=== PATIENT | female | born 1985 | race Hispanic/Latino ===

== ENCOUNTER 2018-12-26 02:46 | Observation (INO) | payer OTHER, SELFPAY ==
[2018-12-26] MEDS ORDERED: MORPHINE 4 MG/ML SYR ONE (03:24)
[2018-12-26] MEDS ORDERED: FAMOTIDINE 20 MG/2 ML VIAL IV ONE (03:24)
[2018-12-26] MEDS ORDERED: ONDANSETRON 4 MG/2 ML VIAL ONE ×2 (03:24→11:48)
[2018-12-26] MEDS ORDERED: NA CHLORIDE 0.9% 1,000 ML ONE (03:25)
--- NOTE | 2018-12-26 03:31 | ER ---
Nurse's Notes [facility] Name: Taarh Izquierdo Age: 33 yrs Sex: Female : 1985 Arrival Date: 12/26/2018 Time: 02:50 Bed 19 Private MD: Diagnosis: Abdominal tenderness;Cholelithiasis;Cholecystitis Presentation: 12/26 02:55 Presenting complaint: Patient states: I started having abdominal pain last night and I ed1 have been throwing up. Transition of care: patient was not received from another setting of care. Onset of symptoms was December 25, 2018. Risk Assessment: Do you want to hurt yourself or someone else? Patient reports no desire to harm self or others. Initial Sepsis Screen: Does the patient meet any 2 criteria? No. Patient's initial sepsis screen is negative. Does the patient have a suspected source of infection? No. Patient's initial sepsis screen is negative. Care prior to arrival: None. 02:55 Method Of Arrival: Ambulatory ed1 02:55 Acuity: NATALIYA 3 ed1 Triage Assessment: 02:56 General: Appears uncomfortable, Behavior is crying. Pain: Complains of pain in ed1 epigastric area Pain currently is 10 out of 10 on a pain scale. GI: Reports nausea, vomiting. 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 - Social history:: Smoking status: Patient/guardian denies using tobacco. - Ebola Screening: : Patient negative for fever greater than or equal to 101.5 degrees Fahrenheit, and additional compatible Ebola Virus Disease symptoms Patient denies exposure to infectious person Patient denies travel to an Ebola-affected area in the 21 days before illness onset No symptoms or risks identified at this time. - Family history:: not pertinent. Screenin:52 Abuse screen: Denies threats or abuse. Denies injuries from another. Nutritional cc3 screening: No deficits noted. Tuberculosis screening: No symptoms or risk factors identified. Fall Risk Ambulatory Aid- None/Bed Rest/Nurse Assist (0 pts). Gait- Normal/Bed Rest/Wheelchair (0 pts) Mental Status- Oriented to own ability (0 pts). Assessment: 02:52 GI: Bowel sounds present X 4 quads. Abd is soft and non tender X 4 quads. cc3 03:17 Reassessment: Patient appears in no apparent distress at this time. Patient and/or cc3 family updated on plan of care and expected duration. Pain level reassessed. Patient is alert, oriented x 3, equal unlabored respirations, skin warm/dry/pink. 03:45 Reassessment: Patient just finished her oral contrast, radiocommunications technician Yvette informed. cc3 04:30 Reassessment: Patient appears in no apparent distress at this time. Patient and/or cc3 family updated on plan of care and expected duration. Pain level reassessed. Patient is alert, oriented x 3, equal unlabored respirations, skin warm/dry/pink. 05:24 Reassessment: Patient appears in no apparent distress at this time. Patient and/or cc3 family updated on plan of care and expected duration. Pain level reassessed. Patient is alert, oriented x 3, equal unlabored respirations, skin warm/dry/pink. Patient came back from CT scan department, awaiting result. 05:45 Reassessment: Patient taken to ultrasound department by the traffic survey technician. cc3 06:00 Reassessment: Patient appears in no apparent distress at this time. Patient and/or cc3 family updated on plan of care and expected duration. Pain level reassessed. Patient is alert, oriented x 3, equal unlabored respirations, skin warm/dry/pink. Patient came back from ultrasound department, awaiting result. Charge nurse Radha said to send the patient for admission once with CT scan result. 06:20 Reassessment: Patient appears in no apparent distress at this time. Patient and/or cc3 family updated on plan of care and expected duration. Pain level reassessed. Patient is alert, oriented x 3, equal unlabored respirations, skin warm/dry/pink. Called radiocommunications technician Yvette to follow up CT scan result and she said no official result yet. 07:32 Reassessment: Patient appears in no apparent distress at this time. Patient and/or sg family updated on plan of care and expected duration. Pain level reassessed. Patient is alert, oriented x 3, equal unlabored respirations, skin warm/dry/pink. pt and pt family updated, awaiting radiology results prior to admission to room 203 per ER doctor order, stated understanding, will continue to monitor. Vital Signs: 02:56 Pulse 102; Resp 20; Temp 98(O); Pulse Ox 100% ; Weight 81.65 kg; Height 5 ft. 3 in. ed1 (160.02 cm); Pain 10/10; 02:56 BP 185 / 105; cc3 03:19 BP 172 / 107; Pulse 86; Resp 18 S; Pulse Ox 99% on R/A; cc3 03:30 BP 147 / 89; Pulse 85; Resp 18 S; Pulse Ox 99% on R/A; cc3 04:30 BP 134 / 97; Pulse 65; Resp 17 S; Pulse Ox 98% on R/A; Pain 1/10; cc3 05:30 BP 145 / 91; Pulse 69; Resp 18 S; Pulse Ox 100% on R/A; cc3 06:10 BP 143 / 88; Pulse 80; Resp 18 S; Pulse Ox 100% on R/A; cc3 07:12 BP 140 / 80; Pulse 80; Resp 17; Temp 98.0; Pulse Ox 100% on R/A; Pain 4/10; sg 02:56 Body Mass Index 31.89 (81.65 kg, 160.02 cm) ed1 ED Course: 02:50 Patient arrived in ED. es 02:52 Marilyn Peoples is Primary Nurse. cc3 02:52 Erasmo Oliva MD is Attending Physician. tony 02:52 Patient has correct armband on for positive identification. Bed in low position. Call cc3 light in reach. Side rails up X 1. Pulse ox on. NIBP on. 02:56 Triage completed. ed1 02:56 Arm band placed on. ed1 03:20 Inserted saline lock: 20 gauge in right antecubital area, using aseptic technique. cc3 Blood collected. inserted by special procedures tech Laci. 03:30 Thiago Gill MD is Hospitalizing Provider. tony 03:55 X-ray completed. Portable x-ray completed in exam room. Patient tolerated procedure az well. 07:00 Report given to JAYLAN Ariza. cc3 07:01 To Brandt RN is Primary Nurse. sg 07:33 No provider procedures requiring assistance completed. Patient admitted, IV remains in sg place. intact, No redness/swelling at site. Administered Medications: 03:20 Drug: NS 0.9% 1000 ml Route: IV; Rate: 1 bolus; Site: right antecubital; cc3 05:00 Follow up: Response: No adverse reaction; IV Status: Completed infusion; IV Intake: cc3 1000ml 03:25 Drug: morphine 4 mg Route: IVP; Site: right antecubital; cc3 04:30 Follow up: Response: No adverse reaction; Pain is decreased cc3 03:28 Drug: Zofran 4 mg Route: IVP; Site: right antecubital; cc3 04:00 Follow up: Response: No adverse reaction; Nausea is decreased cc3 03:33 Drug: Pepcid 20 mg Route: IVP; Site: right antecubital; cc3 04:30 Follow up: Response: No adverse reaction; Pain is decreased cc3 03:40 Drug: Zosyn 3.375 grams Route: IVPB; Infused Over: 60 mins; Site: right antecubital; cc3 04:45 Follow up: Response: No adverse reaction; IV Status: Completed infusion; IV Intake: cc3 100ml Intake: 04:45 IV: 100ml; Total: 100ml. cc3 05:00 IV: 1000ml; Total: 1100ml. cc3 Outcome: 03:30 Decision to Hospitalize by Provider. tony 07:47 Admitted to Med/surg accompanied by vida, via stretcher, room 203, with chart, Report sg called to Lupe TIAN 07:47 Condition: stable 07:47 Instructed on the need for admit, safety practices, Demonstrated understanding of instructions, follow-up care. 08:06 Patient left the ED. sg Signatures: To Brandt RN RN Erasmo Barkley MD MD cha Salyer, Edna es Riggs, Erika, RN RN ed1 Marilyn Peoples cc3 Monica Bowers Corrections: (The following items were deleted from the chart) 03:31 03:30 BP 172 / 107; Pulse 86bpm; Resp 18bpm; Spontaneous; Pulse Ox 99% RA; cc3 cc3 05:24 04:30 Reassessment: Patient appears in no apparent distress at this time. Patient cc3 and/or family updated on plan of care and expected duration. Pain level reassessed. Patient is alert, oriented x 3, equal unlabored respirations, skin warm/dry/pink. Ultrasound done bedside, awaiting for result. cc3 06:09 04:30 Reassessment: Patient appears in no apparent distress at this time. Patient cc3 and/or family updated on plan of care and expected duration. Pain level reassessed. Patient is alert, oriented x 3, equal unlabored respirations, skin warm/dry/pink. Ultrasound done bedside as per patient, awaiting for result. cc3 06:10 04:30 Reassessment: Patient appears in no apparent distress at this time. Patient cc3 and/or family updated on plan of care and expected duration. Pain level reassessed. Patient is alert, oriented x 3, equal unlabored respirations, skin warm/dry/pink. Ultrasound done bedside as per patient, awaiting for result. cc3
--- NOTE | 2018-12-26 03:31 | EDPHYS ---
Physician Documentation [facility] Name: Tarah Izquierdo Age: 33 yrs Sex: Female : 1985 Arrival Date: 12/26/2018 Time: 02:50 Bed 19 Private MD: GAEL Physician Erasmo Oliva HPI: 12/26 03:05 This 33 yrs old Female presents to ER via Ambulatory with complaints of tony Abdominal Pain, Vomiting. 03:05 The patient presents to the emergency department with nausea, vomiting, abdominal pain, tony of the epigastric area, right upper quadrant and left upper quadrant. Onset: The symptoms/episode began/occurred just prior to arrival, this morning. Possible causes: unknown. The symptoms are aggravated by food , The symptoms are alleviated by nothing. remaining still. Associated signs and symptoms: The patient has no apparent associated signs or symptoms. Severity of symptoms: At their worst the symptoms were mild moderate in the emergency department the symptoms are unchanged. The patient has not experienced similar symptoms in the past. 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 - Social history:: Smoking status: Patient/guardian denies using tobacco. - Ebola Screening: : Patient negative for fever greater than or equal to 101.5 degrees Fahrenheit, and additional compatible Ebola Virus Disease symptoms Patient denies exposure to infectious person Patient denies travel to an Ebola-affected area in the 21 days before illness onset No symptoms or risks identified at this time. - Family history:: not pertinent. ROS: 03:05 Constitutional: Negative for fever, chills, and weight loss, Eyes: Negative for injury, tony pain, redness, and discharge, ENT: Negative for injury, pain, and discharge, Neck: Negative for injury, pain, and swelling, Cardiovascular: Negative for chest pain, palpitations, and edema, Respiratory: Negative for shortness of breath, cough, wheezing, and pleuritic chest pain, Back: Negative for injury and pain, : Negative for injury, bleeding, discharge, and swelling, MS/Extremity: Negative for injury and deformity, Skin: Negative for injury, rash, and discoloration, Neuro: Negative for headache, weakness, numbness, tingling, and seizure, Psych: Negative for depression, anxiety, suicide ideation, homicidal ideation, and hallucinations, Allergy/Immunology: Negative for hives, rash, and allergies, Endocrine: Negative for neck swelling, polydipsia, polyuria, polyphagia, and marked weight changes, Hematologic/Lymphatic: Negative for swollen nodes, abnormal bleeding, and unusual bruising. 03:05 Abdomen/GI: Positive for abdominal pain. Exam: 03:05 Constitutional: This is a well developed, well nourished patient who is awake, alert, tony and in no acute distress. Head/Face: Normocephalic, atraumatic. Eyes: Pupils equal round and reactive to light, extra-ocular motions intact. Lids and lashes normal. Conjunctiva and sclera are non-icteric and not injected. Cornea within normal limits. Periorbital areas with no swelling, redness, or edema. ENT: Nares patent. No nasal discharge, no septal abnormalities noted. Tympanic membranes are normal and external auditory canals are clear. Oropharynx with no redness, swelling, or masses, exudates, or evidence of obstruction, uvula midline. Mucous membranes moist. Neck: Trachea midline, no thyromegaly or masses palpated, and no cervical lymphadenopathy. Supple, full range of motion without nuchal rigidity, or vertebral point tenderness. No Meningismus. Chest/axilla: Normal chest wall appearance and motion. Nontender with no deformity. No lesions are appreciated. Cardiovascular: Regular rate and rhythm with a normal S1 and S2. No gallops, murmurs, or rubs. Normal PMI, no JVD. No pulse deficits. Respiratory: Lungs have equal breath sounds bilaterally, clear to auscultation and percussion. No rales, rhonchi or wheezes noted. No increased work of breathing, no retractions or nasal flaring. Back: No spinal tenderness. No costovertebral tenderness. Full range of motion. Skin: Warm, dry with normal turgor. Normal color with no rashes, no lesions, and no evidence of cellulitis. MS/ Extremity: Pulses equal, no cyanosis. Neurovascular intact. Full, normal range of motion. Neuro: Awake and alert, GCS 15, oriented to person, place, time, and situation. Cranial nerves II-XII grossly intact. Motor strength 5/5 in all extremities. Sensory grossly intact. Cerebellar exam normal. Normal gait. Psych: Awake, alert, with orientation to person, place and time. Behavior, mood, and affect are within normal limits. 03:05 Abdomen/GI: Inspection: abdomen appears normal, Bowel sounds: normal, active, Palpation: mild abdominal tenderness, moderate abdominal tenderness, in the epigastric area, Liver: no appreciated palpable abnormalities, Hernia: not appreciated. Vital Signs: 02:56 Pulse 102; Resp 20; Temp 98(O); Pulse Ox 100% ; Weight 81.65 kg; Height 5 ft. 3 in. ed1 (160.02 cm); Pain 10/10; 02:56 BP 185 / 105; cc3 03:19 BP 172 / 107; Pulse 86; Resp 18 S; Pulse Ox 99% on R/A; cc3 03:30 BP 147 / 89; Pulse 85; Resp 18 S; Pulse Ox 99% on R/A; cc3 04:30 BP 134 / 97; Pulse 65; Resp 17 S; Pulse Ox 98% on R/A; Pain 1/10; cc3 05:30 BP 145 / 91; Pulse 69; Resp 18 S; Pulse Ox 100% on R/A; cc3 06:10 BP 143 / 88; Pulse 80; Resp 18 S; Pulse Ox 100% on R/A; cc3 07:12 BP 140 / 80; Pulse 80; Resp 17; Temp 98.0; Pulse Ox 100% on R/A; Pain 4/10; sg 02:56 Body Mass Index 31.89 (81.65 kg, 160.02 cm) ed1 MDM: 02:52 Patient medically screened. [facility] 03:08 Data reviewed: vital signs, nurses notes, lab test result(s), EKG, radiologic studies, tony ultrasound. 12/26 03:05 Order name: Basic Metabolic Panel; Complete Time: 04:37 [facility] 12/26 03:05 Order name: CBC with Diff; Complete Time: 04:37 [facility] 12/26 03:05 Order name: Creatinine for Radiology; Complete Time: 04:37 [facility] 12/26 03:05 Order name: Hepatic Function; Complete Time: 04:37 [facility] 12/26 03:05 Order name: Lipase; Complete Time: 04:37 [facility] 12/26 03:17 Order name: Urine Dipstick--Ancillary (enter results) [facility] 12/26 03:17 Order name: CT Abd/Pelvis - W/Contrast [facility] 12/26 03:17 Order name: Urine --Ancillary (enter results) [facility] 12/26 03:29 Order name: US Abdomen Limited [facility] 12/26 03:40 Order name: Chest Single View XRAY [facility] 12/26 03:05 Order name: IV Saline Lock; Complete Time: 03:29 [facility] 12/26 03:05 Order name: Labs collected and sent; Complete Time: 03:29 [facility] 12/26 03:05 Order name: Urine Dipstick-Ancillary (obtain specimen); Complete Time: 03:07 [facility] 12/26 03:05 Order name: Urine Test (obtain specimen); Complete Time: 03:07 [facility] Administered Medications: 03:20 Drug: NS 0.9% 1000 ml Route: IV; Rate: 1 bolus; Site: right antecubital; cc3 05:00 Follow up: Response: No adverse reaction; IV Status: Completed infusion; IV Intake: cc3 1000ml 03:25 Drug: morphine 4 mg Route: IVP; Site: right antecubital; cc3 04:30 Follow up: Response: No adverse reaction; Pain is decreased cc3 03:28 Drug: Zofran 4 mg Route: IVP; Site: right antecubital; cc3 04:00 Follow up: Response: No adverse reaction; Nausea is decreased cc3 03:33 Drug: Pepcid 20 mg Route: IVP; Site: right antecubital; cc3 04:30 Follow up: Response: No adverse reaction; Pain is decreased cc3 03:40 Drug: Zosyn 3.375 grams Route: IVPB; Infused Over: 60 mins; Site: right antecubital; cc3 04:45 Follow up: Response: No adverse reaction; IV Status: Completed infusion; IV Intake: cc3 100ml Disposition: 12/26/18 03:30 Hospitalization ordered by Thiago Gill for Observation. Preliminary diagnosis are Abdominal tenderness, Cholelithiasis, Cholecystitis. - Bed requested for Telemetry/MedSurg (observation). - Status is Observation. sg - Condition is Stable. - Problem is new. - Symptoms have improved. UTI on Admission? No Signatures: Dispatcher [employer] EDJairon Willen, RN RN sg Erasmo Oliva MD MD cha Riggs, Erika, RN RN ed1 Rosa Rose, RN RN cg Marilyn Peoples cc3 Corrections: (The following items were deleted from the chart) 03:43 03:30 Hospitalization Ordered by Thiago Gill MD for Observation. Preliminary cg diagnosis is Abdominal tenderness; Cholelithiasis; Cholecystitis. Bed requested for Telemetry/MedSurg (observation). Status is Observation. Condition is Stable. Problem is new. Symptoms have improved. UTI on Admission? No. [facility] 08:06 03:43 12/26/2018 03:30 Hospitalization Ordered by Thiago Gill MD for Observation. Preliminary diagnosis is Abdominal tenderness; Cholelithiasis; Cholecystitis. Bed requested for Telemetry/MedSurg (observation). Status is Observation. Condition is Stable. Problem is new. Symptoms have improved. UTI on Admission? No.
[2018-12-26 03:44] LABS: Absolute Lymphocytes (CBC) 1.8 K/uL (0.7-4.9); Absolute Monocytes 0.4 K/uL (0.1-1.3); Absolute Neutrophil 5.3 K/uL (1.8-8.0); Eosinophils % 0.3 % (0-4.4); Hematocrit 42.3 % (36.0-45.0); Lymphocytes % 23.9 % (15.3-44.8); MPV 8.5 fL (7.6-11.3); Monocytes % 5.6 % (3.3-12.3); RBC Red Blood Cell Count 4.93 M/uL (3.86-4.86)
[2018-12-26] MEDS ORDERED: PIPER/TAZO/NS 3.375gm 3.375 GM/100 ML BAG ONE (03:50)
[2018-12-26 03:57] LABS: Albumin 4.4 g/dL (3.4-5.0); Bilirubin Direct 0.1 mg/dL (0-0.2); Bilirubin Total 0.4 mg/dL (0.2-1.0); Potassium 3.5 mmol/L (3.5-5.1)
[2018-12-26 07:17] LABS: Urine Blood NEGATIVE (NEG); Urine Glucose TRACE (NEG); Urine Protein NEGATIVE (NEG); Urine pH 7.5 (5.0-7.0)
[2018-12-26] MEDS: D5 0.45 NS 1,000 ML IV SCH ×2 (08:33→16:33)
[2018-12-26] MEDS ORDERED: ONDANSETRON 4 MG/2 ML VIAL IV PRN (08:33)
[2018-12-26] MEDS ORDERED: ACETAMINOPHEN 325 MG TABLET PO PRN (08:33)
[2018-12-26] MEDS ORDERED: MORPHINE 4 MG/ML SYR IV PRN (08:33)
[2018-12-26] MEDS ORDERED: FAMOTIDINE 20 MG/2 ML VIAL IV SCH ×3 (09:00→21:00)
--- NOTE | 2018-12-26 09:09 | RAD REPORT ---
EXAM DESCRIPTION: US - Abdomen Exam Limited - 12/26/2018 6:05 am CLINICAL HISTORY: Abdominal pain. COMPARISON: December 26, 2018 cat scan FINDINGS: Multiple gallstones. The gallbladder wall is not thickened. The biliary tree is normal caliber. IMPRESSION: Cholelithiasis
--- NOTE | 2018-12-26 10:06 | RAD REPORT ---
EXAM DESCRIPTION: Neymar Single View12/26/2018 3:56 am CLINICAL HISTORY: Abdominal pain COMPARISON: none FINDINGS: The lungs appear clear of acute infiltrate. The heart is normal size IMPRESSION: No acute abnormalities displayed
[2018-12-26] MEDS ORDERED: Ringers Lactate 1,000 ML IV ONE (10:18)
[2018-12-26] MEDS ORDERED: PROPOFOL 200 MG/20 ML VIAL IV ONE (11:25)
[2018-12-26] MEDS ORDERED: FENTANYL CITR 100 MCG/2 ML ONE ×2 (11:25→12:03)
[2018-12-26] MEDS ORDERED: LIDOCAINE 2% MPF 5 ML VIAL ONE (11:26)
[2018-12-26] MEDS ORDERED: ROCURONIUM 50 MG/5 ML VIAL IV ONE (11:26)
[2018-12-26] MEDS ORDERED: DEXAMETHASONE 10 MG/ML VIAL ONE (11:48)
[2018-12-26] MEDS ORDERED: KETOROLAC 30 MG/ML INJ ONE (11:48)
[2018-12-26] MEDS ORDERED: PIPER/TAZO/NS 3.375gm 3.375 GM/100 ML BAG IVPB SCH (12:00)
[2018-12-26] MEDS ORDERED: GLYCOPYRROLATE 0.2 MG/ML SYR ONE (12:14)
--- NOTE | 2018-12-26 12:42 | P.BOP ---
Preoperative diagnosis: acute cholecystitist, symptomatic cholelithiasis Postoperative diagnosis: same, umbilical hernia Primary procedure: Laparoscopic cholecystectomy Secondary procedure: open repair of tender umbilical hernia Estimated blood loss: <10cc Specimen: GB, sac Findings: see dictation Anesthesia: General Complications: None Transferred to: Recovery Room Condition: Good
[2018-12-26] MEDS ORDERED: HYDROCODONE/APAP 5/325 MG TAB PO PRN (13:01)
--- NOTE | 2018-12-26 18:12 | OP ---
Date of Procedure: 12/26/2018 Surgeon: Thiago Gill MD Battery Checker: None. Preoperative Diagnoses: Acute cholecystitis, symptomatic cholelithiasis. Postoperative Diagnoses: Acute cholecystitis, symptomatic cholelithiasis, plus tender umbilical elizabeth ia. Procedures: Laparoscopic cholecystectomy. Open repair of tender umbilical hernia. Estimated Blood Loss: Less than 10 cc. Specimen: Gallbladder and hernia sac. Findings: The patient has acute cholecystitis with distended gallbladder, large stones, thickening o f the wall of the gallbladder. Also the patient has umbilical hernia with incarcerated omentum. Indications: This is the case of a 33-year-old patient, who comes to us with intractable right upper quadrant pain. The benefits, alternatives, and risks of laparoscopic, possible open cholecystectomy fully explained, which include but are not limited to infection, bleeding, damage to adjacent struct ures, anesthesia complication, choledocholithiasis, bile leak, pancreatitis, NM, and even . She also understands this may not relieve any symptoms. She might need more than one surgical intervent ion. She understood, signed a consent. Description Of Procedure: The patient was brought to the operating room, placed in supine position. Anesthesia was done without complication. Abdominal area was prepped and draped in usual sterile fa shion. Local anesthesia was applied, followed by sharp incision of the skin. Immediately, we notice d the patient to have an umbilical hernia with incarcerated omentum. So carefully, the hernia sac wa s opened. Omentum was reduced back into the abdominal cavity after being fully inspected and noticed to be viable, and some adhesions removed from omentum to the hernia sac. The fascial edges were ope sumi, and then after that I placed Vicryl #1 inside the fascia. Ana trocar was carefully introduce d. Pneumoperitoneum was obtained. I placed 3 more trocars, 5 mm each one of them, in the right uppe r quadrant under direct visualization. Since the gallbladder was distended, I had to put an Endo nee dle and deflate the gallbladder partially with the Endo needle under direct visualization. The needl e was removed. Then, after that, I put a grasper in the fundus of the gallbladder, another grasper i n the infundibulum, retracted the gallbladder in the inferolateral fashion exposing the triangle of C alot, obtaining critical view of safety. The cystic duct and cystic artery were clearly isolated kelsey e circumferentially and a connection between those and the gallbladder was clearly identified. I pro ceeded to ligate those by using at least 3 clips proximal, 1 clip distal, ligation in middle. Same w as done with the cystic artery. No bile leak. No bleeding. The gallbladder was removed from liver using Bovie cauterizer and removed from abdominal cavity using an EndoCatch through the umbilical inc ision. The area was inspected once again. No bile leak. No bleeding after irrigation and suction. Once again, clips were intact. At that moment, I proceeded to remove the trocars under direct visio n. Deflated the pneumoperitoneum. Closed the fascia and the umbilical hernia with #1 Vicryl in a fi gure-eight fashion, interrupted, multiple. Irrigation was done and subcu tissue was closed with 3-0 chromic and skin in subcuticular fashion with 3-0 chromic and Steri-Strips on top. Sponge count and instrument counts were correct. The patient tolerated the procedure well. The patient was sent to [facility] in stable condition. If she can tolerate diet this afternoon and dinner, then she will be discharged home. Follow up in m y office next Friday. Medications include Augmentin 875 p.o. q.12, hydrocodone q.4 hours p.r.n. pain . No heavy lifting, no more than 20 pounds. Keep the area dry for 48 hours, then may shower. Keep Steri-Strips intact. AUDREY/EZIO Voice ID: [id number] Report ID: [id number]
--- NOTE | 2018-12-26 18:27 | HP ---
Date of Admission: 12/26/2018 Diagnoses: Acute cholecystitis, symptomatic cholelithiasis, right upper quadrant abdominal pain. History Of Present Illness: This is the case of a 33-year-old patient who comes to us with epigastri c right upper quadrant pain radiating to the back associated with nausea and vomiting. This has been like that since about a day already. In the ER, even with hydration the pain persisted, so they francisco javier led me for admission and treating of cholecystitis with cholecystectomy. She denies any dysuria, hem aturia, hematochezia, or melena. Denies any recent traveling out of the country. Denies any family member sick at home. Allergies: NONE. Surgeries: None. Medical History: None. Family History: Noncontributory. Gynecologic History: Last menstrual period, irregular menses. Social History: She does not smoke. She does not drink alcohol. Review of Systems: Ten points, otherwise unremarkable. Physical Examination: General: The patient is awake and alert. HEENT: Pupils are equal and reactive, anicteric. Neck: Supple. Chest: Clear. Abdomen: Epigastric right upper quadrant tenderness with Wong sign positive. The rest of abdomen soft and depressible. Extremities: Good capillary refill. Breast/Rectal/Pelvis: Deferred. Neurologic: Cranial nerves 2-12 grossly within normal limits. Laboratory Data: Blood work shows WBC count of 7.7, hemoglobin of 14.4, total bilirubin of 0.4. BUN is 11. Creatinine 0.79. Lipase 103. Laboratory Data: Ultrasound of the abdomen interpreted by Dr. Sanchez as cholelithiasis. Assessment: A 33-year-old patient with acute cholecystitis, symptomatic cholelithiasis, right upper quadrant pain. Wong sign positive. Benefits, alternatives, and risks of laparoscopic, possible op en cholecystectomy fully explained, which included but not limited to infection, bleeding, damage to adjacent structures, anesthesia complication, choledocholithiasis, bile leak, pancreatitis, SD, and e marcelino . She also understands this may not relieve any symptoms. She might need more than one elodia gical intervention. She would like to undergo the surgery during this admission. AUDREY/EZIO Voice ID: [id number]
--- NOTE | 2018-12-28 12:00 | RAD REPORT ---
EXAM DESCRIPTION: CT - Abdomen Pelvis W Contrast - 12/26/2018 6:38 am CLINICAL HISTORY: ABD PAIN COMPARISON: None. TECHNIQUE: CT ABDOMEN PELVIS WITH IV CONTRAST on 12/26/2018 3:17 AM CDT This exam was performed according to our departmental dose-optimization program, which includes autom ated exposure control, adjustment of the mA and/or kV according to patient size and/or use of iterati ve reconstruction technique. FINDINGS: Lower lungs are clear. Abdomen: The liver is normal in appearance. There is no biliary dilatation. Gallbladder contains mult iple large gallstones. The pancreas and spleen are normal in appearance. The adrenal glands and kidne ys are unremarkable. Abdominal aorta is normal in course and caliber without aneurysm. There is no free air. There is no r etroperitoneal adenopathy. Pelvis: There is no bowel obstruction. Urinary bladder is unremarkable. There is no free fluid. Appen og is normal. Uterus is normal in size. Skeleton: There are no acute osseous findings. No suspicious bony lesions. IMPRESSION: Cholelithiasis. No acute inflammatory process. Electronically signed by: Brendan Rodriguez MD 12/26/2018 5:34 AM CDT Due to temporary technical issues with the PACS/Fluency reporting system, reports are being signed by the in house radiologist as a courtesy to ensure prompt reporting. The interpreting radiologist is f ully responsible for the content of the report.
== END 2018-12-26 17:38 | disposition home or self-care (01) ==
LOC: ER 02:46 → INTOOBSV 03:34 → ERHOLD 03:34 → 2ND 07:50
PROVIDERS: ADMIT Surgery; ATTEND Surgery
PROC: 0WQF0ZZ Repair Abdominal Wall, Open Approach (ICD-10-PCS; 2018-12-26)
PROC: 0FT44ZZ Resection of Gallbladder, Percutaneous Endoscopic Approach (ICD-10-PCS; principal; 2018-12-26 11:00)
DX: K80.00 Calculus of gallbladder with acute cholecystitis without obstruction (principal); K42.0 Umbilical hernia with obstruction, without gangrene
CPT/HCPCS: 36415; 71045; 74177; 76705; 80048; 80076; 81003; 81025; 83690; 85025; 88302; 88304; 96361; 96365; 96375; 99285; G0378; J1100; J2405; J2543; J2704; J3010; J7030; Q9967

== ENCOUNTER 2022-04-16 07:06 | Emergency (ER) | payer OTHER ==
--- OUTSIDE RECORDS SUMMARY | 2022-04-16 07:09 | XMS REPORT | Continuity of Care Document ---
:1985 Author Organization [facility] t Address [address] [place] [address] Care Team Providers Name Role Phone Pcp, Patient Does Not Have A Primary Care Physician [phone] Rosanna Rose RN Attending Clinician Unavailable Roderick Ramírez Attending Clinician RODERICK SHEN Attending Clinician Unavailable Provider, [facility] Attending Clinician Unavailable Noemí Coe Attending Clinician NOEMÍ NOVA Attending Clinician Unavailable Payers Payer Name Policy Type Policy Number Effective Date Expiration Date S ource Problems Condition Condition Condition Status Onset Resolution Last Treating Co mments Source Name Details Category Date Date Treatment Clinician Date No known No known Disease Unive rs active active ity of problems problems [facility] Allergies, Adverse Reactions, Alerts Allergy Allergy Status Severity Reaction(s) Onset Inactive Treating Comm ents Source Name Type Date Date Clinician NO KNOWN Drug Active Univers ALLERGIE Class ity of S [facility] Social History Social Habit Start Date Stop Date Quantity Comments Source Exposure to 2022-02-25 2022-03-07 Not sure University SARS-CoV-2 00:00:00 13:56:00 [facility] [place] Tobacco use and 2020-12-27 2020-12-27 Smokeless tobacco Un iversity of exposure 00:00:00 00:00:00 non-user [facility] Sex Ass[birth year] At [birth year] Universit y of 00:00:00 00:00:00 [facility] Smoking Status Start Date Stop Date Source Never smoked tobacco [facility] Medications Ordered Filled Start Stop Current Ordering Indication Dosage Frequency Signature Comments Components Source Medication Medication Date Date Medication? Clinician (SIG) Name Name loperamide Yes Take by Univ ers HCl 5-05 mouth. ity of (IMODIUM 16:31: [place] ORAL) [address] loperamide Yes Take by Univ ers HCl 5-05 mouth. ity of (IMODIUM 11:31: [place] ORAL) [address] loperamide Yes Take by Univ ers HCl 5-05 mouth. ity of (IMODIUM 11:31: [place] ORAL) [address] [facility] [address] Vital Signs Vital Name Observation Time Observation Value Comments Source Systolic blood 2022-03-07 19:11:00 150 mm[Hg] manual Univer sity of pressure [facility] Diastolic blood 2022-03-07 19:11:00 110 mm[Hg] manual Unive rsity [facility] Heart rate 2022-03-07 19:00:00 106 /min [facility] Body temperature 2022-03-07 19:00:[address] [facility] Respiratory rate 2022-03-07 19:00:00 20 /min Univ [facility] Body height 2022-03-07 19:00:00 160 cm [facility] Body weight 2022-03-07 19:00:00 83.915 kg [facility] BMI 2022-03-07 19:00:00 32.77 kg/m2 [facility] Oxygen saturation in 2022-03-07 19:00:00 97 /min [facility] Arterial blood by [facility] Pulse oximetry Branch Systolic blood 2020-12-27 16:34:00 155 mm[Hg] Univer sity of pressure [facility] Diastolic blood 2020-12-27 16:34:00 107 mm[Hg] Unive rsity of [facility] Heart rate 2020-12-27 16:30:00 96 /min [facility] Respiratory rate 2020-12-27 16:30:00 16 /min [facility] Body height 2020-12-27 16:30:00 160 cm [facility] Body weight 2020-12-27 16:30:00 85.276 kg [facility] BMI 2020-12-27 16:30:00 33.30 kg/m2 [facility] Oxygen saturation in 2020-12-27 16:30:00 98 /min [facility] Arterial blood by [facility] Pulse oximetry [place] Procedures Procedure Date / Time Performed Performing Clinician Sourc e POCT MOLECULAR STREP 2022-03-07 19:09:00 Roderick [facility] POCT TEST 2020-12-27 17:40:00 Noemí [facility] POCT URINALYSIS 2020-12-27 16:39:00 Noemí Nova [facility] Encounters Start End Encounter Admission Attending Care Care Encounter Source Date/Time Date/Time Type Type Clinicians Facility Department ID 2022-03-08 2022-03-08 Telephone JACQUI Rose [id number] Univers 00:00:00 00:00:00 Rosanna ABREU [id number] i ty of [facility] [id number] Rahul as [id number] [address] 2022-03-07 2022-03-07 Outpatient R [facility] [id number] Univers 14:40:00 14:40:00 [id number] [facility] 2022-03-07 2022-03-07 Urgent Deric [facility] [id number] Univers 14:40:00 14:40:00 Care [facility] [id number] it y [facility] [id number] Rahul as KIERA?BLEA [id number] [address] MEDICAL OFFICE BUILDING 2022-03-07 2022-03-07 Outpatient R DERIC [facility] [id number] Univers 14:40:00 14:22:00 [facility] 2020-12-27 2020-12-27 Urgent Provider, [facility] [id number] Univers 11:16:54 13:29:13 Care Catina, Noemí [facility] [id number] [facility] [id number] Rahul as Cecy [id number] Ok dical [facility] [address] 2020-12-27 2020-12-27 Outpatient R [facility] [id number] Univers 11:20:00 11:20:00 [id number] [facility] 2020-12-27 2020-12-27 [facility] [id number] Univers 11:20:00 11:20:00 NOEMÍ [facility] Results Test Description Test Time Test Comments Results Result Comments Source POCT MOLECULAR STREP 2022-03-07 19:17:04 Test Item Value Reference Range Interpretation Comme nts POCT Molecular Strep (test code = 91137-6) Negative Negative Lab Interpretation (test code = 74768-9) [id number] 17:43:00 Test Item Value Reference Range Interpretation Comments POCT PREG (test code = Negative 1605) On board controls Yes acceptable with C Line (test code = 3574) POCT PREG LOT # (test code = 3575) POCT PREG TEST DATE (test code = 3576) VERNON (test code = VERNON) accurate development and interpretation of all internal controls Lab Interpretation Normal (test code = 12652-7) [facility] URINALYSIS W SPECIFIC [id number] 16:40:00 Test Item Value Reference Range Interpretation Comments POCT U SP GRAV (test 1.020 mg/dl 1.005-1.025 code = 3255) POCT PH U (test code = 6 mg/dl 5-8 3254) POCT U LEUK EST (test neg Negative - code = 3263) Negative POCT U NIT (test code neg Negative - = 3262) Negative POCT U PROT (test code trace Negative - = 3259) Negative POCT U GLU (test code Negative - = 3256) Negative POCT U KETONE (test neg Negative - code = 3258) Negative POCT U UROBILI (test neg 0.2-1 code = 3260) POCT U BILI (test code neg Negative - = 3261) Negative POCT U BLD (test code trace Negative - = 3257) Negative POCT U COLOR (test aleksandra code = 3266) POCT U APPEAR (test clear code = 3267) VERNON (test code = VERNON) accurate development and interpretation of all internal controls Lab Interpretation Abnormal (test code = 46325-6) [facility]
--- NOTE | 2022-04-16 07:46 | ER ---
Nurse's Notes [facility] Name: Tarah Izquierdo Age: 37 yrs Sex: Female : 1985 Arrival Date: 04/16/2022 Time: 07:08 Bed 12 Private MD: Diagnosis: Allergy, unspecified;Allergy, unspecified, initial encounter Presentation: 04/16 07:13 Chief complaint: Patient states: lip swelling that began yesterday morning after ss applying lip gloss and chap stick. Pt reports she took Benadryl at 1900 yesterday evening and it seemed to decrease the swelling some. Denies SOB, no rash noted. Coronavirus screen: Client denies travel out of the [place] in the last 14 days. Ebola Screen: Patient denies exposure to infectious person. Patient denies travel to an Ebola-affected area in the 21 days before illness onset. Onset: The symptoms/episode began/occurred 1 day(s) ago. Anaphylaxis evaluation, moderate swelling noted to bottom lip. Initial Sepsis Screen: Does the patient meet any 2 criteria? No. Patient's initial sepsis screen is negative. Does the patient have a suspected source of infection? No. Patient's initial sepsis screen is negative. Risk Assessment: Do you want to hurt yourself or someone else? Patient reports no desire to harm self or others. Onset of symptoms was April 15, 2022. 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 - Social history:: Smoking status: Patient denies any tobacco usage or history of. Screenin:22 Abuse screen: Denies threats or abuse. Denies injuries from another. Nutritional ss screening: No deficits noted. Tuberculosis screening: Never had TB. Fall Risk None identified. Assessment: 07:22 General: Appears in no apparent distress. comfortable, Behavior is calm, cooperative, ss Denies fever, feeling ill, fatigue, chills. Pain: Denies pain. Neuro: Level of Consciousness is awake, alert, obeys commands, Oriented to person, place, time, situation, Hiv Prevention Specialist are equal bilaterally. Cardiovascular: Capillary refill < 3 seconds is brisk in bilateral fingers. Respiratory: Airway is patent Respiratory effort is even, unlabored, Respiratory pattern is regular, symmetrical. GI: Patient currently denies diarrhea, nausea, vomiting. EENT: moderate swelling noted to bottom lip. Pt reports it began yesterday morning. Derm: Skin is intact, is healthy with good turgor, Skin is dry. Musculoskeletal: Circulation, motion, and sensation intact. Range of motion: intact in all extremities, Swelling absent. Musculoskeletal: 07:55 Reassessment: Pt and family verbalize understanding that BP was elevated during today's ss visit and states she will attempt to obtain PCP this week. Vital Signs: 07:13 Pulse 90; Resp 15; Temp 97.4(TE); Pulse Ox 99% on R/A; Weight 83.91 kg; Height 5 ft. 3 ss in. (160.02 cm); Pain 0/10; 07:15 BP 181 / 108; ss 07:18 BP 177 / 111; ss 07:13 Body Mass Index 32.77 (83.91 kg, 160.02 cm) ED Course: 07:08 Patient arrived in ED. rg4 07:15 Triage completed. ss 07:16 Arm band placed on right wrist. ss 07:22 Camryn Tomas, RN is Primary Nurse. ss 07:22 Patient has correct armband on for positive identification. ss 07:29 Maikel Ponce MD is Attending Physician. kdr 07:55 No provider procedures requiring assistance completed. Patient did not have IV access ss during this emergency room visit. Administered Medications: 07:55 Drug: predniSONE 60 mg Route: PO; ss 07:55 Follow up: Response: Medication administered at discharge. ss 07:55 Drug: Pepcid (famotidine) 20 mg Route: PO; ss 07:55 Follow up: Response: Medication administered at discharge. Medication: 07:22 VIS not applicable for this client. ss Outcome: 07:45 Discharge ordered by . kdr 07:55 Discharged to home ambulatory, with family. ss 07:55 Condition: good 07:55 Discharge instructions given to patient, family, Instructed on discharge instructions, follow up and referral plans. medication usage, Demonstrated understanding of instructions, follow-up care, medications, Prescriptions given X 2. 07:59 Patient left the ED. Signatures: Maikel Ponce MD MD kdr Smirch, Shelby, RN RN ss Funmi Rose rg4
--- NOTE | 2022-04-16 07:46 | EDPHYS ---
Physician Documentation [facility] Name: Tarah Izquierdo Age: 37 yrs Sex: Female : 1985 Arrival Date: 04/16/2022 Time: 07:08 Bed 12 Private MD: ED Physician Maikel Ponce HPI: 04/16 07:40 This 37 yrs old Female presents to ER via Ambulatory with complaints of kdr Allergic Reaction lip swelling. 07:40 The patient presents with localized swelling. Onset: The symptoms/episode kdr began/occurred yesterday. Associated signs and symptoms: The patient has no apparent associated signs or symptoms. Possible causes: Patient had used some lip balm yesterday and since then she has had swelling to the area where she replaced it. At home the patient or guardian has treated the symptoms with Benadryl. Severity of symptoms: At their worst the symptoms were mild Patient only has swelling to her lower lip and mostly on the right side. The patient has not experienced similar symptoms in the past. The patient has not recently seen a physician. 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 - Social history:: Smoking status: Patient denies any tobacco usage or history of. ROS: 07:40 Constitutional: Negative for fever, chills, and weight loss, Eyes: Negative for injury, kdr pain, redness, and discharge, Neck: Negative for injury, pain, and swelling, Cardiovascular: Negative for chest pain, palpitations, and edema, Respiratory: Negative for shortness of breath, cough, wheezing, and pleuritic chest pain, Abdomen/GI: Negative for abdominal pain, nausea, vomiting, diarrhea, and constipation, Back: Negative for injury and pain, : Negative for injury, bleeding, discharge, and swelling, MS/Extremity: Negative for injury and deformity. 07:40 ENT: Positive for Right lower lip swelling. Exam: 07:40 Constitutional: This is a well developed, well nourished patient who is awake, alert, kdr and in no acute distress. Head/Face: Normocephalic, atraumatic. Eyes: Pupils equal round and reactive to light, extra-ocular motions intact. Lids and lashes normal. Conjunctiva and sclera are non-icteric and not injected. Cornea within normal limits. Periorbital areas with no swelling, redness, or edema. Neck: Trachea midline, no thyromegaly or masses palpated, and no cervical lymphadenopathy. Supple, full range of motion without nuchal rigidity, or vertebral point tenderness. No Meningismus. Chest/axilla: Normal chest wall appearance and motion. Nontender with no deformity. No lesions are appreciated. 07:40 ENT: Mouth: Lips: moist, Patient has slight discrimination to the lower lip primarily on the right side. There is no other apparent abnormality. Patient otherwise is stable.. Vital Signs: 07:13 Pulse 90; Resp 15; Temp 97.4(TE); Pulse Ox 99% on R/A; Weight 83.91 kg; Height 5 ft. 3 ss in. (160.02 cm); Pain 0/10; 07:15 BP 181 / 108; ss 07:18 BP 177 / 111; ss 07:13 Body Mass Index 32.77 (83.91 kg, 160.02 cm) ss MDM: 07:40 Data reviewed: vital signs, nurses notes, lab test result(s), radiologic studies. kdr Counseling: I had a detailed discussion with the patient and/or guardian regarding: the historical points, exam findings, and any diagnostic results supporting the discharge/admit diagnosis, the need for outpatient follow up. ED course: Patient was noted to be hypertensive. She states that she gets whitecoat syndrome. I instructed her to keep a diary of her blood pressures at home taking her blood pressure no more than once or twice a day but at the same time. She will follow-up with her physician for further evaluation. 07:45 Patient medically screened. kdr Administered Medications: 07:55 Drug: predniSONE 60 mg Route: PO; ss 07:55 Follow up: Response: Medication administered at discharge. ss 07:55 Drug: Pepcid (famotidine) 20 mg Route: PO; ss 07:55 Follow up: Response: Medication administered at discharge. Disposition Summary: 04/16/22 07:45 Discharge Ordered Location: Home kdr Problem: new kdr Symptoms: have improved kdr Condition: Stable kdr Diagnosis - Allergy, unspecified kdr - Allergy, unspecified, initial encounter kdr Followup: kdr - With: Private Physician - When: 2 - 3 days - Reason: If symptoms return, Further diagnostic work-up, Recheck today's complaints, Continuance of care, Re-evaluation by your physician Discharge Instructions: - Discharge Summary Sheet kdr - Hypertension, Adult, [id number] kdr - Allergies, Adult, [id number] kdr Forms: - Medication Reconciliation Form kdr - Thank You Letter kdr - Work release form ss Prescriptions: - Prednisone 20 mg Oral Tablet - take 1 tablet by ORAL route once daily for 5 days; 5 tablet; Refills: 0, kdr Product Selection Permitted - Pepcid 20 mg Oral Tablet - take 1 tablet by ORAL route once daily for 10 days; 10 tablet; Refills: 0, kdr Product Selection Permitted Signatures: Maikel Ponce MD MD kdr Camryn Tomas RN RN ss
[2022-04-16] MEDS ORDERED: FAMOTIDINE 20 MG TAB ONE (07:54)
[2022-04-16] MEDS ORDERED: predniSONE 20 MG TAB ONE (07:55)
[2022-04-16 08:11] VITALS: TEMP 97.4; O2SAT 99
[2022-04-16 08:14] VITALS: BP 177/111
== END 2022-04-16 07:59 | disposition home or self-care (01) ==
LOC: ER 07:06
DX: R22.9 Localized swelling, mass and lump, unspecified (principal); Z91.09 Other allergy status, other than to drugs and biological substances
CPT/HCPCS: J7512

== ENCOUNTER 2022-04-24 15:07 | Emergency (ER) | payer OTHER ==
--- OUTSIDE RECORDS SUMMARY | 2022-04-24 15:10 | XMS REPORT | Continuity of Care Document ---
:1985 Author Organization [facility] t Address [address] [place] [address] Care Team Providers Name Role Phone Pcp, Patient Does Not Have A Primary Care Physician [id number] Milton TIAN, Rosanna Rizzo Attending Clinician Unavailable Roderick Ramírez Attending Clinician [...] rs active active ity of problems problems [facility] Allergies, Adverse Reactions, Alerts Allergy Allergy Status Severity Reaction(s) Onset Inactive Treating Comm ents Source Name Type Date Date Clinician NO KNOWN Drug Active Univers ALLERGIE Class ity of S [facility] Social History Social Habit Start Date Stop Date Quantity Comments Source Exposure to 2022-02-25 2022-03-07 Not sure University SARS-CoV-2 00:00:00 13:56:00 [facility] [place] Tobacco use and 2020-12-27 2020-12-27 Smokeless tobacco Un iversity of exposure 00:00:00 00:00:00 non-user [facility] Sex Assigned At [birth year] Universit y of 00:00:00 00:00:00 [facility] Smoking Status Start Date Stop Date Source Never smoked tobacco [facility] Medications Ordered Filled Start Stop Current Ordering [...] of (IMODIUM 11:31: [place] ORAL) 39 Medical [place] Vital Signs Vital Name Observation Time Observation Value Comments Source Systolic blood 2022-03-07 19:11:00 150 mm[Hg] manual Univer sity of [facility] Diastolic blood 2022-03-07 19:11:00 110 mm[Hg] manual Unive rsity of [facility] Heart rate 2022-03-07 19:00:00 106 /min [facility] Body temperature 2022-03-07 19:00:00 36.89 Tamara [facility] Respiratory rate 2022-03-07 19:00:00 20 /min [facility] Body height 2022-03-07 19:00:[address] [facility] Body weight 2022-03-07 19:00:[address] [facility] BMI 2022-03-07 19:00:00 32.77 kg/m2 [facility] Oxygen saturation in 2022-03-07 19:00:00 97 /min [facility] Arterial blood by [facility] Pulse oximetry Branch Systolic blood 2020-12-27 16:34:00 155 mm[Hg] Univer sity of [facility] Diastolic blood 2020-12-27 16:34:00 107 mm[Hg] Unive rsity of pressure [facility] Heart rate 2020-12-27 16:30:00 96 /min [facility] Respiratory rate 2020-12-27 16:30:00 16 /[facility] 2020-12-27 16:30:[address] [facility] Body weight 2020-12-27 16:30:[address] [facility] BMI 2020-12-27 16:30:00 33.30 kg/m2 [facility] Oxygen saturation in 2020-12-27 16:30:00 98 /min [facility] Arterial blood by [facility] Pulse oximetry [place] Procedures Procedure Date / Time Performed Performing Clinician Sourc e POCT MOLECULAR STREP 2022-03-07 19:09:00 Roderick Shen [facility] POCT TEST 2020-12-27 17:40:00 Noemí Nova [facility] POCT URINALYSIS 2020-12-27 16:39:00 Noemí Nova [facility] Encounters Start End Encounter Admission Attending Care Care Encounter Source Date/Time Date/Time Type Type Clinicians Facility Department ID 2022-03-08 2022-03-08 Telephone JACQUI Rose [id number] [facility] 00:00:00 00:00:00 Rosanna ABREU [id number] i ty of [facility] [id number] Rahul as [id number] [address] 2022-03-07 2022-03-07 Outpatient R [facility] [id number] Univers 14:40:00 14:40:00 [id number] [facility] 2022-03-07 2022-03-07 Urgent Deric [facility] [id number] Univers 14:40:00 14:40:00 [facility] [id number] it y of [facility] [id number] Rahul as KIERA?BLEA [id number] [address] MEDICAL OFFICE BUILDING 2022-03-07 2022-03-07 Outpatient R DERIC [facility] [id number] Univers 14:40:00 14:22:00 [facility] 2020-12-27 2020-12-27 Urgent Provider, [place] [facility] [id number] Univers 11:16:54 13:29:13 Lisa Noemí Nova [id number] [facility] [id number] Rahul as Cecy [id number] Wa dical nal [address] 2020-12-27 2020-12-27 Outpatient R [facility] [id number] Univers 11:20:00 11:20:00 [id number] [facility] 2020-12-27 2020-12-27 Outpatient R [facility] [id number] Univers 11:20:00 11:20:00 NOEMÍ [facility] Results Test Description Test Time Test Comments Results Result Comments Source POCT MOLECULAR STREP 2022-03-07 19:17:04 Test Item Value Reference Range Interpretation Comme nts POCT Molecular Strep (test code = 72417-2) Negative Negative Lab Interpretation (test code = 02066-6) [id number] 17:43:00 Test Item Value Reference Range Interpretation Comments POCT PREG (test code = Negative 1605) On board controls Yes acceptable with C Line (test code = 3574) POCT PREG LOT # (test code = 3575) POCT PREG TEST DATE (test code = 3576) VERNON (test code = VERNON) accurate development and interpretation of all internal controls Lab Interpretation Normal (test code = 69556-2) [facility] URINALYSIS W SPECIFIC [id number] 16:40:00 Test Item Value Reference Range Interpretation [...] controls Lab Interpretation Abnormal (test code = 81836-3) [facility]
[2022-04-24 16:36] LABS: Absolute Lymphocytes (CBC) 3.5 K/uL (0.7-4.9); Hematocrit 31.9 % (36.0-45.0); Lymphocytes % 25.8 % (15.3-44.8); MCV 84.8 fL (80-100); MPV 8.1 fL (7.6-11.3); RBC Red Blood Cell Count 3.76 M/uL (3.86-4.86)
[2022-04-24 16:39] LABS: Potassium 3.6 mmol/L (3.5-5.1)
[2022-04-24] MEDS ORDERED: NA CHLORIDE 0.9% 1,000 ML ONE ×2 (16:53→19:50)
--- NOTE | 2022-04-24 17:44 | RAD REPORT ---
EXAM DESCRIPTION: US - Transvaginal Study Probe - 04/24/2022 5:29 pm CLINICAL HISTORY: Vaginal bleeding COMPARISON: none FINDINGS: The uterus measures 7 x 3 x 4 cm. A fibroid is not seen. The endometrial stripe measures 1 5 millimeters. The right ovary normal in size and echotexture. Left ovary not seen secondary to overlying bowel gas The right and left adnexa unremarkable No significant free fluid is seen. IMPRESSION: Borderline prominence of the endometrium. This probably is related to normal menstruatio n. As a precaution it is recommended that the patient have a followup ultrasound in a couple months t o reassess the endometrium
[2022-04-24 20:04] LABS: Specific Gravity 1.015 (1.005-1.030)
[2022-04-24 20:25] LABS: Urine Crystals Unidentified Many /HPF (None Seen); Urine RBC >50 /HPF (None Seen); Urine WBC Clump Many /HPF (None Seen)
--- NOTE | 2022-04-24 20:39 | EDPHYS ---
Physician Documentation [facility] Name: Tarah Izquierdo Age: 37 yrs Sex: Female : 1985 Arrival Date: 04/24/2022 Time: 15:11 Bed 12 Private MD: ED Physician Maximiliano Barakat HPI: 04/25 00:36 This 37 yrs old Female presents to ER via Ambulatory with complaints of kb Vaginal Bleeding, Nausea, Dizziness. 00:36 The patient presents with vaginal bleeding that is heavy. Onset: The symptoms/episode kb began/occurred 2 day(s) ago. Modifying factors: The symptoms are alleviated by nothing, the symptoms are aggravated by nothing. Associated signs and symptoms: Pertinent positives: vaginal bleeding. Severity of symptoms: At their worst the symptoms were moderate, in the emergency department the symptoms are unchanged. The patient has not experienced similar symptoms in the past. The patient has not recently seen a physician. Patient reports heavy vaginal bleeding for 2 days. Reports nausea and dizziness.. 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 - Social history:: Smoking status: Patient denies any tobacco usage or history of. ROS: 04/25 00:36 Constitutional: Negative for fever, chills, and weight loss. kb Abdomen/GI: Positive for nausea. : Positive for vaginal bleeding. Neuro: Positive for dizziness. All other systems are negative. Exam: 00:36 Constitutional: This is a well developed, well nourished patient who is awake, alert, kb and in no acute distress. Head/Face: Normocephalic, atraumatic. ENT: Moist Mucous membranes Cardiovascular: Regular rate and rhythm with a normal S1 and S2. No gallops, murmurs, or rubs. No pulse deficits. Respiratory: Respirations even and unlabored. No increased work of breathing. Talking in full sentences Abdomen/GI: Soft, non-tender. No distention Skin: Warm, dry with normal turgor. Normal color. MS/ Extremity: Pulses equal, no cyanosis. Neurovascular intact. Full, normal range of motion. Neuro: Awake and alert, GCS 15, oriented to person, place, time, and situation. Moves all extremities. Normal gait. Psych: Awake, alert, with orientation to person, place and time. Behavior, mood, and affect are within normal limits. Vital Signs: 04/24 15:16 BP 149 / 101; Pulse 130; Resp 16; Temp 97.9; Pulse Ox 100% on R/A; Weight 85.28 kg; tp1 Height 5 ft. 3 in. (160.02 cm); 16:37 BP 130 / 86 Supine; Pulse 108; Pulse Ox 100% on R/A; jd3 16:37 BP 128 / 87 Sitting; Pulse 111; Resp 16 S; Pulse Ox 100% on R/A; jd3 16:37 BP 115 / 76 Standing; Pulse 129; Resp 20 S; Pulse Ox 100% on R/A; jd3 17:56 BP 116 / 85; Pulse 109; Resp 17 S; Pulse Ox 100% on R/A; jd3 21:03 BP 140 / 91; Pulse 88; Resp 18 S; Pulse Ox 100% on R/A; as6 15:16 Body Mass Index 33.30 (85.28 kg, 160.02 cm) tp1 MDM: 15:18 Patient medically screened. kb 04/25 00:36 Data reviewed: vital signs, nurses notes. Data interpreted: Pulse oximetry: on room air kb is 100 %. Interpretation: normal. Counseling: I had a detailed discussion with the patient and/or guardian regarding: the historical points, exam findings, and any diagnostic results supporting the discharge/admit diagnosis, lab results, radiology results, the need for outpatient follow up, an OB/Gyne specialist, to return to the emergency department if symptoms worsen or persist or if there are any questions or concerns that arise at home. 04/24 15:25 Order name: Basic Metabolic Panel; Complete Time: 16:44 kb 04/24 15:25 Order name: CBC with Diff; Complete Time: 16:44 kb 04/24 15:25 Order name: Type And Screen; Complete Time: 17:07 kb 04/24 19:39 Order name: Test, Urine; Complete Time: 20:09 EDMS 04/24 15:25 Order name: IV Saline Lock; Complete Time: 16:18 kb 04/24 15:25 Order name: Labs collected and sent; Complete Time: 16:18 kb 04/24 16:45 Order name: US Transvaginal Study (Probe); Complete Time: 17:48 kb 04/24 20:20 Order name: Urine Microscopic Only; Complete Time: 20:32 EDMS 04/24 20:33 Order name: Urine Culture EDMS 04/24 15:25 Order name: NPO; Complete Time: 15:59 kb 04/24 15:25 Order name: Urine Dipstick-Ancillary (obtain specimen); Complete Time: 19:14 kb 04/24 15:25 Order name: Urine Test (obtain specimen); Complete Time: 19:14 kb 04/24 15:25 Order name: Orthostatics; Complete Time: 16:28 kb Administered Medications: 04/24 16:46 Drug: NS 0.9% 1000 ml Route: IV; Rate: 1000 ml; Site: right forearm; jd3 20:35 Follow up: IV Status: Completed infusion; IV Intake: 1000ml kb3 20:36 Follow up: Response: No adverse reaction kb3 20:30 Drug: NS 0.9% 1000 ml Route: IV; Rate: 1000 ml; Site: right antecubital; as6 21:02 Follow up: Response: No adverse reaction; IV Status: Completed infusion; IV Intake: as6 1000ml Disposition: 04/25 19:47 Co-signature as Attending Physician, Maximiliano JIMENEZ was immediately available on-site ms3 in the Emergency Department for consultation in the care of the patient. . Disposition Summary: 04/24/22 20:38 Discharge Ordered Location: Home kb Condition: Stable kb Diagnosis - Dehydration kb - UTI/ Urinary tract infection, site not specified kb - Abnormal uterine and vaginal bleeding, unspecified kb Followup: kb - With: Emergency Department - When: As needed - Reason: Worsening of condition Followup: kb - With: Private Physician - When: 2 - 3 days - Reason: Recheck today's complaints, Continuance of care, Re-evaluation by your physician Discharge Instructions: - Discharge Summary Sheet kb - Dehydration, Adult kb - Urinary Tract Infection, Adult, [id number] kb - Abnormal Uterine Bleeding, [id number] kb Forms: - Medication Reconciliation Form kb - Thank You Letter kb - Antibiotic Education kb - Prescription Opioid Use kb Prescriptions: - Macrobid 100 mg Oral Capsule - take 1 capsule by ORAL route every 12 hours for 10 days; 20 capsule; Refills: kb 0, Product Selection Permitted Signatures: Dispatcher [employer] EDSharon Baum, REY BARAHONA-Ole Hart, RN RN jd3 Maximiliano Barakat, DO ms3 Marek Klein RN RN as6 Shae Kidd RN RN tp1 Aida Gonzales RN kb3 Corrections: (The following items were deleted from the chart) 04/24 16:48 16:45 Transvaginal Ob+US.RAD.BRZ ordered. EDMS EDMS 20:18 16:45 URINALYSIS+U.LAB.BRZ ordered. EDMS EDMS 20:20 20:15 UA MICROSCOPIC+U.LAB.BRZ ordered. EDMS EDMS
--- NOTE | 2022-04-24 20:39 | ER ---
Nurse's Notes [facility] Name: Tarah Izquierdo Age: 37 yrs Sex: Female : 1985 Arrival Date: 04/24/2022 Time: 15:11 Bed 12 Private MD: Diagnosis: Dehydration;UTI/ Urinary tract infection, site not specified;Abnormal uterine and vaginal bleeding, unspecified Presentation: 04/24 15:16 Chief complaint: Patient states: heavy menstrual bleeding started yesterday. reports tp1 using 1 pad an hour and passing half dollar sized clots. denies previous heavy bleeding. reports feeling dizzy and nauseous. Coronavirus screen: Vaccine status: Patient reports being unvaccinated. Ebola Screen: Patient negative for fever greater than or equal to 101.5 degrees Fahrenheit, and additional compatible Ebola Virus Disease symptoms Patient denies exposure to infectious person. Patient denies travel to an Ebola-affected area in the 21 days before illness onset. Initial Sepsis Screen: Does the patient meet any 2 criteria? No. Patient's initial sepsis screen is negative. Does the patient have a suspected source of infection? No. Patient's initial sepsis screen is negative. Risk Assessment: Do you want to hurt yourself or someone else? Patient reports no desire to harm self or others. Onset of symptoms was April 22, 2022. 15:16 Method Of Arrival: Ambulatory tp1 15:16 Acuity: NATALIYA 3 tp1 Triage Assessment: 15:20 General: Appears in no apparent distress. comfortable, Behavior is calm, cooperative. tp1 Pain: Denies pain. Neuro: Reports dizziness. Cardiovascular: Patient's skin is warm and dry. GI: Reports nausea, Patient currently denies vomiting. : Reports vaginal bleeding that is heavy flow since started 2 days ago 04/23. 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 - Social history:: Smoking status: Patient denies any tobacco usage or history of. Screenin:30 Abuse screen: Denies threats or abuse. Nutritional screening: No deficits noted. jd3 Tuberculosis screening: No symptoms or risk factors identified. Fall Risk Ambulatory Aid- None/Bed Rest/Nurse Assist (0 pts). Gait- Normal/Bed Rest/Wheelchair (0 pts) Mental Status- Oriented to own ability (0 pts). Total Zhou Fall Scale indicates No Risk (0-24 pts). Assessment: 16:29 General: Appears in no apparent distress. comfortable, Behavior is calm, cooperative, jd3 appropriate for age. Pain: Complains of pain in suprapubic area Quality of pain is described as crampy. Neuro: Boudreaux Agitation-Sedation Scale (RASS): 0 - Alert and Calm Level of Consciousness is awake, alert, obeys commands, Oriented to person, place, time, situation. Cardiovascular: Denies chest pain, Capillary refill < 3 seconds Patient's skin is warm and dry. Respiratory: Airway is patent Respiratory effort is even, unlabored, Respiratory pattern is regular, symmetrical. GI: No signs and/or symptoms were reported involving the gastrointestinal system. : Reports vaginal bleeding that is with clots, heavy flow. EENT: No signs and/or symptoms were reported regarding the EENT system. Derm: Skin is intact, Skin is dry, Skin is normal, Skin temperature is warm. Musculoskeletal: Circulation, motion, and sensation intact. Range of motion: intact in all extremities. 16:37 Reassessment: No changes from previously documented assessment. Patient and/or family jd3 updated on plan of care and expected duration. Pain level reassessed. Patient is alert, oriented x 3, equal unlabored respirations, skin warm/dry/pink. 17:56 Reassessment: Patient appears in no apparent distress at this time. No changes from jd3 previously documented assessment. Patient and/or family updated on plan of care and expected duration. Pain level reassessed. Patient is alert, oriented x 3, equal unlabored respirations, skin warm/dry/pink. 18:58 Reassessment: Patient appears in no apparent distress at this time. Patient and/or jd3 family updated on plan of care and expected duration. Pain level reassessed. Patient is alert, oriented x 3, equal unlabored respirations, skin warm/dry/pink. awaiting results. Vital Signs: 15:16 BP 149 / 101; Pulse 130; Resp 16; Temp 97.9; Pulse Ox 100% on R/A; Weight 85.28 kg; tp1 Height 5 ft. 3 in. (160.02 cm); 16:37 BP 130 / 86 Supine; Pulse 108; Pulse Ox 100% on R/A; jd3 16:37 BP 128 / 87 Sitting; Pulse 111; Resp 16 S; Pulse Ox 100% on R/A; jd3 16:37 BP 115 / 76 Standing; Pulse 129; Resp 20 S; Pulse Ox 100% on R/A; jd3 17:56 BP 116 / 85; Pulse 109; Resp 17 S; Pulse Ox 100% on R/A; jd3 21:03 BP 140 / 91; Pulse 88; Resp 18 S; Pulse Ox 100% on R/A; as6 15:16 Body Mass Index 33.30 (85.28 kg, 160.02 cm) tp1 ED Course: 15:11 Patient arrived in ED. mr 15:18 Ten Sharon, [facility] kb 15:18 Maximiliano Barakat DO is Attending Physician. kb 15:20 Triage completed. tp1 15:20 Arm band placed on. tp1 15:59 Ole Murry, JAYLAN is Primary Nurse. jd3 16:18 Inserted saline lock: 20 gauge in right forearm, using aseptic technique. Blood jd3 collected. 16:31 Patient has correct armband on for positive identification. Bed in low position. Call jd3 light in reach. Side rails up X 1. Adult w/ patient. Pulse ox on. NIBP on. 17:31 US Transvaginal Study (Probe) In Process Unspecified. EDMS 21:02 No provider procedures requiring assistance completed. IV discontinued, intact, as6 bleeding controlled, No redness/swelling at site. Pressure dressing applied. Administered Medications: 16:46 Drug: NS 0.9% 1000 ml Route: IV; Rate: 1000 ml; Site: right forearm; jd3 20:35 Follow up: IV Status: Completed infusion; IV Intake: 1000ml kb3 20:36 Follow up: Response: No adverse reaction kb3 20:30 Drug: NS 0.9% 1000 ml Route: IV; Rate: 1000 ml; Site: right antecubital; as6 21:02 Follow up: Response: No adverse reaction; IV Status: Completed infusion; IV Intake: as6 1000ml Medication: 16:30 VIS not applicable for this client. jd3 Intake: 20:35 IV: 1000ml; Total: 1000ml. kb3 21:02 IV: 1000ml; Total: 2000ml. as6 Outcome: 20:38 Discharge ordered by . kb 21:02 Discharged to home ambulatory. as6 21:02 Condition: stable 21:02 Discharge instructions given to patient, Instructed on discharge instructions, follow up and referral plans. medication usage, Demonstrated understanding of instructions, follow-up care, medications, Prescriptions given X 1. 21:04 Patient left the ED. as6 Signatures: Dispatcher [employer] EDMS Sharon Caal, LABOR RELATIONS SPECIALIST-C LABOR RELATIONS SPECIALIST-Ckb Luisa GaleasOle, RN RN jd3 Marek Klein RN JAYLAN as6 Shae Kidd RN RN tp1 Aida Gonzales, RN RN kb3 Corrections: (The following items were deleted from the chart) 15:22 15:20 : Reports vaginal bleeding that is heavy flow since started 2 days ago 04/22 tp1 tp1 15:23 15:16 Chief complaint: Patient states: heavy menstrual bleeding started 2 days ago. tp1 reports using 1 pad an hour. denies previous heavy bleeding. reports feeling dizzy and nauseous. tp1 15:23 15:16 Chief complaint: Patient states: heavy menstrual bleeding started yesterday. tp1 reports using 1 pad an hour. denies previous heavy bleeding. reports feeling dizzy and nauseous. tp1 20:18 19:15 URINALYSIS+U.LAB.BRZ drawn and sent. jd3 EDMS
[2022-04-24 21:12] VITALS: TEMP 97.9; O2SAT 100
[2022-04-24 21:22] VITALS: BP 140/91
== END 2022-04-24 21:04 | disposition home or self-care (01) ==
LOC: ER 15:07
DX: N93.9 Abnormal uterine and vaginal bleeding, unspecified (principal); E86.0 Dehydration; N39.0 Urinary tract infection, site not specified
CPT/HCPCS: 36415; 76830; 80048; 81015; 81025; 85025; 86850; 86900; 86901; 87086; 87088; J7030